=== PATIENT | female | born 1965 ===

== ENCOUNTER 2017-03-15 07:43 | Day surgery (SDC) | payer OTHER ==
[2017-03-15] MEDS ORDERED: Lactated Ringer's 1,000 ML IV ONE (08:09)
[2017-03-15] MEDS ORDERED: Propofol 10 mg/ml Inj (20 ML) ONE (08:46)
[2017-03-15] MEDS ORDERED: Lidocaine 2% MPF (5 ml) Inj ONE (08:46)
[2017-03-15 09:26] VITALS: TEMP 97; O2SAT 100
[2017-03-15 09:38] VITALS: BP 114/67; PULSE 73; RESP 14
== END 2017-03-15 09:39 | disposition home or self-care (01) ==
LOC: H.ENDO 07:43
PROVIDERS: ATTEND Internal Medicine Gastroenterology
DX: Z12.11 Encounter for screening for malignant neoplasm of colon (principal); E78.5 Hyperlipidemia, unspecified; E03.9 Hypothyroidism, unspecified; K21.9 Gastro-esophageal reflux disease without esophagitis; K64.0 First degree hemorrhoids
CPT/HCPCS: 45378; 88305; J2704; J7120